=== PATIENT | female | born 1955 | race Caucasian/White ===

== ENCOUNTER 2017-04-24 14:51 | Emergency (ER) | payer SELFPAY ==
[2017-04-24 14:59] VITALS: RESP 18; O2SAT 99
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
[2017-04-24] MEDS ORDERED: IPRATROPIUM/ALBUTEROL 3 ML DEYVIAL ONE (15:30)
[2017-04-24] MEDS ORDERED: IPRATROPIUM/ALBUTEROL 3 ML DEYVIAL IH ONE (15:31)
[2017-04-24 16:38] VITALS: BP 144/74; PULSE 83; TEMP 98.2
== END 2017-04-24 16:41 | disposition home or self-care (01) ==
DX: J20.9 Acute bronchitis, unspecified (principal)